=== PATIENT | male | born 1995 | race Caucasian/White ===

== ENCOUNTER 2017-02-06 22:40 | Emergency (ER) | payer OTHER, BC ==
[~2017-02-06] VITALS: Ht 180.3 cm; Wt 77.1 kg
[2017-02-06] MEDS ORDERED: NS IV 1000 ML 1,000 ML IV ONE (22:51)
[2017-02-06] MEDS ORDERED: ANTACID SUSP 30 ML UDC (MYLANTA) PO ONE (23:00)
[2017-02-06] MEDS ORDERED: LIDOCAINE 2% VISCOUS 15 ML UDC PO ONE (23:00)
[2017-02-06] MEDS ORDERED: FAMOTIDINE 20MG/2ML IV (PEPCID) IVP ONE (23:00)
[2017-02-06] MEDS ORDERED: ONDANSETRON 4 MG/2 ML (SDV) Z0FRAN IVP ONE (23:00)
--- NOTE | 2017-02-06 23:01 | ED Abdominal Pain ---
General Chief Complaint: Chest Wall/Rib Pain Stated Complaint: PAIN UNDER RIBS/NAUSEA/VOMITING Nursing Triage Note: REPORTS PAIN IN UPPER RIBS BILAT STARTING AT 2100. PT DRANK A BEER AROUND 1900. TENDER IN EPIGASTIC AREA WITH NAUSEA Sepsis Screen: No Definite Risk Source of Information: Patient Exam Limitations: No Limitations History of Present Illness Time Seen By Provider: 22:45 Initial Comments This 22-year-old young man presents to the emergency room with complaints of pain across the upper abdomen associated with nausea and vomiting. Patient reports drinking one beer at 19:00. He has had nausea throughout the day and started vomiting at 21:00 when his pain became severe. He denies any constipation or diarrhea. No fever. He reports one prior episode of month or 2 ago that was not associated with alcohol use. He reports his pain as 6/10. He reports drinking alcohol relatively infrequently, about twice per month. Allergies and Home Medications Allergies Coded Allergies: No Known Drug Allergies (Unverified , 02/06/17) Home Medications Omeprazole 20 Mg Tablet.dr, 20 MG PO BID, #30 Prescribed by: ELENI CADET on 02/07/17 0117 Review of Systems Constitutional: no symptoms reported EENTM: No Symptoms Reported Respiratory: No Symptoms Reported Cardiovascular: No Symptoms Reported Gastrointestinal: See HPI Genitourinary: No Symptoms Reported Musculoskeletal: no symptoms reported Skin: no symptoms reported Psychiatric/Neurological: No Symptoms Reported Endocrine: No Symptoms Reported Past Hsxzdto-Ejmvtt-Wzefax Hx Patient Social History Alcohol Use: Occasionally Uses Recreational Drug Use: No Smoking Status: Never a Smoker 2nd Hand Smoke Exposure: No Recent Foreign Travel: No Contact w/Someone Who Travel: No Recent Infectious Disease Expo: No Recent Hopitalizations: No Immunizations Up To Date PED Vaccines UTD: Yes Seasonal Allergies Seasonal Allergies: No Surgeries HX Surgeries: Yes (PLASTIC SURGERY FOR FX NOSE (SEPTUM 5 PCS)) Surgeries: Nose Respiratory Hx Respiratory Disorders: No Cardiovascular Hx Cardiac Disorders: No (MURMUR) Reproductive System Hx Reproductive Disorders: No Genitourinary Hx Genitourinary Disorders: No Gastrointestinal Hx Gastrointestinal Disorders: No Musculoskeletal Hx Musculoskeletal Disorders: No Endocrine Hx Endocrine Disorders: No HEENT HX ENT Disorders: No Cancer Hx Cancer: No Psychosocial Hx Psychiatric Problems: No Integumentary HX Skin/Integumentary Disorder: No Blood Transfusions Hx Blood Disorders: No Family Medical History Significant Family History: Diabetes Physical Exam Vital Signs VS - Last 72 Hours, by Label 02/06/17 22:48 Temp 98.5 Pulse 102 Resp 20 B/P (MAP) 160/108 O2 Delivery Room Air Capillary Refill : Less Than 3 Seconds General Appearance: WD/WN, mild distress HEENT: PERRL/EOMI, normal ENT inspection Neck: normal inspection Respiratory: lungs clear, normal breath sounds, no respiratory distress, no accessory muscle use Cardiovascular: regular rate, rhythm, no edema, no murmur Gastrointestinal: normal bowel sounds, soft, tenderness (throughout the upper abdomen) Extremities: normal inspection, no pedal edema Neurologic/Psychiatric: automobile tester II-XII nml as tested, no motor/sensory deficits, alert, normal mood/affect, oriented x 3 Skin: normal color, warm/dry Progress/Results/Core Measures Results/Orders Lab Results Laboratory Tests Test 02/06/17 22:58 02/06/17 23:44 Range/Units White Blood Count 8.6 4.3-11.0 10^3/uL Red Blood Count 5.50 4.35-5.85 10^6/uL Hemoglobin 16.3 13.3-17.7 G/DL Hematocrit 46 40-54 % Mean Corpuscular Volume 84 80-99 FL Mean Corpuscular Hemoglobin 30 25-34 PG Mean Corpuscular Hemoglobin Concent 35 32-36 G/DL Red Cell Distribution Width 13.1 10.0-14.5 % Platelet Count 286 130-400 10^3/uL Mean Platelet Volume 9.5 7.4-10.4 FL Neutrophils (%) (Auto) 62 42-75 % Lymphocytes (%) (Auto) 27 12-44 % Monocytes (%) (Auto) 10 0-12 % Eosinophils (%) (Auto) 0 0-10 % Basophils (%) (Auto) 1 0-10 % Neutrophils # (Auto) 5.4 1.8-7.8 X 10^3 Lymphocytes # (Auto) 2.3 1.0-4.0 X 10^3 Monocytes # (Auto) 0.9 0.0-1.0 X 10^3 Eosinophils # (Auto) 0.0 0.0-0.3 10^3/uL Basophils # (Auto) 0.0 0.0-0.1 10^3/uL Sodium Level 142 135-145 MMOL/L Potassium Level 3.7 3.6-5.0 MMOL/L Chloride Level 105 98-107 MMOL/L Carbon Dioxide Level 26 21-32 MMOL/L Anion Gap 11 5-14 MMOL/L Blood Urea Nitrogen 12 7-18 MG/DL Creatinine 1.21 0.60-1.30 MG/DL Estimat Glomerular Filtration Rate > 60 BUN/Creatinine Ratio 10 Glucose Level 126 H 70-105 MG/DL Calcium Level 9.4 8.5-10.1 MG/DL Total Bilirubin 2.1 H 0.1-1.0 MG/DL Aspartate Amino Transf (AST/SGOT) 26 5-34 U/L Alanine Aminotransferase (ALT/SGPT) 42 0-55 U/L Alkaline Phosphatase 52 40-136 U/L Total Protein 7.4 6.4-8.2 G/DL Albumin 4.6 H 3.2-4.5 G/DL Lipase 25 8-78 U/L Serum Alcohol < 10 <10 MG/DL Urine Color YELLOW Urine Clarity CLEAR Urine pH 7 5-9 Urine Specific [place] 1.015 L 1.016-1.022 Urine Protein NEGATIVE NEGATIVE Urine Glucose (UA) NEGATIVE NEGATIVE Urine Ketones NEGATIVE NEGATIVE Urine Nitrite NEGATIVE NEGATIVE Urine Bilirubin NEGATIVE NEGATIVE Urine Urobilinogen 1 NORMAL MG/DL Urine Leukocyte Esterase NEGATIVE NEGATIVE Urine RBC (Auto) NEGATIVE NEGATIVE Urine RBC NONE /HPF Urine WBC NONE /HPF Urine Squamous Epithelial Cells 2-5 /HPF Urine Crystals NONE /LPF Urine Bacteria NEGATIVE /HPF Urine Casts NONE /LPF Urine Mucus NEGATIVE /LPF Urine Culture Indicated NO My Orders Orders - ELENI RAGSDALE MD Alcohol (02/06/17 22:51) Cbc With Automated Diff (02/06/17 22:51) Comprehensive Metabolic Panel (02/06/17 22:51) Lipase (02/06/17 22:51) Ua Culture If Indicated (02/06/17 22:51) Ondansetron Injection (Zofran Injectio (02/06/17 23:00) Famotidine Injection (Pepcid Injection) (02/06/17 23:00) Lidocaine 2% Viscous 15 Ml (Xylocaine Vi (02/06/17 23:00) Antacid Suspension (Mylanta Suspension (02/06/17 23:00) Saline Lock/Iv-Start (02/06/17 22:51) Ns Iv 1000 Ml (Sodium Chloride 0.9%) (02/06/17 22:51) Us Gallbladder [address] (02/06/17 23:48) Ketorolac Injection (Toradol Injection) (02/07/17 01:15) Rx-Ondansetron Po (Rx-Zofran Po) (02/07/17 01:10) Medications Given in ED Current Medications Medications Dose Ordered Sig/Julieta Route Start Time Stop Time Status Last Admin Dose Admin Al Hydrox/Mg Hydrox/Simethicone 30 ml ONCE ONCE PO 02/06/17 23:00 02/06/17 23:01 DC 02/06/17 23:19 30 ML Famotidine 20 mg ONCE ONCE IVP 02/06/17 23:00 02/06/17 23:01 DC 02/06/17 23:05 20 MG Ketorolac Tromethamine 30 mg ONCE ONCE IVP 02/07/17 01:15 02/07/17 01:16 DC 02/07/17 01:18 30 MG Lidocaine HCl 15 ml ONCE ONCE PO 02/06/17 23:00 02/06/17 23:01 DC 02/06/17 23:19 15 ML Ondansetron HCl 8 mg ONCE ONCE IVP 02/06/17 23:00 02/06/17 23:01 DC 02/06/17 23:05 8 MG Sodium Chloride 1,000 ml @ 0 mls/hr Q0M ONCE IV 02/06/17 22:51 02/06/17 22:55 DC 02/06/17 23:05 999 MLS/HR Vital Signs/I&O Vital Sign - Last 12Hours 02/06/17 22:48 Temp 98.5 Pulse 102 Resp 20 B/P (MAP) 160/108 O2 Delivery Room Air Intake and Output 02/07/17 00:00 Intake Total 1000 ml Balance 1000 ml Blood Pressure Mean: 125 Progress Note #1: Time: 23:00 Progress Note Patient was seen and examined. Labs were ordered along with a liter of IV fluids. Pepcid, Zofran, and GI cocktail were ordered for treatment of his symptoms. Progress Note #2: Time: 23:49 Progress Note Patient reports some gradual improvement of pain but he notes no significant change after GI cocktail. He also reports having recurrent stomach upset with greasy foods and dairy products. Bilirubin was noted to be elevated on lab evaluation. Gallbladder ultrasound has been ordered. On reexamination, he has bilateral upper abdominal pain, right greater than left. Progress Note #3: Time: 01:22 Progress Note Gallbladder was still contracted on the ultrasound. There were no secondary signs of cholecystitis such as pericholecystic fluid. No stones were evident. Bile duct was not dilated. Patient was given a dose of Toradol and a take-home pack of Zofran. Discharge instructions were reviewed. Diagnostic Imaging Diagonstic Imaging: Ultrasound Plain Films/CT/US/NM/MRI: abdomen Comments Gallbladder ultrasound discussed with the outboard technician and [employer] report reviewed. Gallbladder was unfortunately still contracted. There were no secondary signs of cholecystitis such as pericholecystic fluid. Common bile duct was not dilated. No stones were evident. Repeat sonography after a longer fasting duration was recommended. Departure Impression Impression: Primary Impression: Upper abdominal pain Additional Impressions: Nausea and vomiting Qualified Codes: R11.2 - Nausea with vomiting, unspecified Elevated bilirubin Disposition: HOME, SELF-CARE Condition: Improved Departure-Patient Inst. Decision time for Depature: 01:14 Referrals: NO,LOCAL PHYSICIAN (PCP/Family) Primary Care Physician Patient Instructions: Acute Abdomen (Belly Pain) Add. Discharge Instructions: Use omeprazole twice daily for at least 2 weeks as prescribed. Follow-up with your primary care provider soon as possible. Discussed repeating the gallbladder ultrasound when you aren't able to have nothing on your stomach for 6-8 hours prior to the test and when you are not having symptoms. Dissolve the Zofran (ondansetron) under the tongue every 4 hours as needed for nausea or vomiting. Consume primarily clear liquids until symptoms improve. Then gradually advance your diet with small quantities of bland food as tolerated. Avoid the following: Fatty or greasy foods, eating close to bedtime, eating large meals, alcohol, carbonation, caffeine, chocolate, mint, citrus fruits and juices, tomato products, tobacco, NSAID medications such as ibuprofen or naproxen, spicy foods, or anything else you know irritates your stomach. All discharge instructions reviewed with patient and/or family. Voiced understanding. Scripts Omeprazole (Omeprazole) 20 Mg Tablet. 20 MG PO BID, #30 TAB Prov: ELENI RAGSDALE MD 02/07/17 ELENI RAGSDALE MD Feb 06, 2017 23:00
[2017-02-06 23:06] LABS: BASOPHILS % (AUTO) 1 % (0-10); EOSINOPHILS % (AUTO) 0 % (0-10); LYMPHOCYTES # (AUTO) 2.3 X 10^3 (1.0-4.0); LYMPHOCYTES % (AUTO) 27 % (12-44); MEAN CORPUSCULAR HEMOGLOBIN 30 PG (25-34); MEAN CORPUSCULAR HGB CONC 35 G/DL (32-36); MEAN CORPUSCULAR VOLUME 84 FL (80-99); MEAN PLATELET VOLUME 9.5 FL (7.4-10.4); MONOCYTES # (AUTO) 0.9 X 10^3 (0.0-1.0); MONOCYTES % (AUTO) 10 % (0-12); NEUTROPHILS # (AUTO) 5.4 X 10^3 (1.8-7.8); NEUTROPHILS % (AUTO) 62 % (42-75); PLATELET COUNT 286 10^3/uL (130-400); RED CELL DISTRIBUTION WIDTH 13.1 % (10.0-14.5); WHITE BLOOD COUNT 8.6 10^3/uL (4.3-11.0)
[2017-02-06 23:29] LABS: ALANINE AMINOTRANSFERASE 42 U/L (0-55); ALBUMIN 4.6 G/DL (3.2-4.5); ANION GAP 11 MMOL/L (5-14); ASPARTATE AMINO TRANSFERASE 26 U/L (5-34); BILIRUBIN,TOTAL 2.1 MG/DL (0.1-1.0); BLOOD UREA NITROGEN 12 MG/DL (7-18); BUN/CREATININE RATIO 10; CALCIUM 9.4 MG/DL (8.5-10.1); CARBON DIOXIDE 26 MMOL/L (21-32); CHLORIDE 105 MMOL/L (98-107); CREATININE SERUM 1.21 MG/DL (0.60-1.30); GFR ESTIMATED > 60; GLUCOSE 126 MG/DL (70-105); LIPASE 25 U/L (8-78); POTASSIUM 3.7 MMOL/L (3.6-5.0); SODIUM 142 MMOL/L (135-145); TOTAL PROTEIN 7.4 G/DL (6.4-8.2)
[2017-02-06 23:30] LABS: ALCOHOL < 10 MG/DL (<10)
[2017-02-06 23:52] LABS: BILIRUBIN,URINE NEGATIVE (NEGATIVE); KETONES,URINE NEGATIVE (NEGATIVE); LEUKOCYTE ESTERASE ,URINE NEGATIVE (NEGATIVE); NITRITE,URINE NEGATIVE (NEGATIVE); PH,URINE 7 (5-9); PROTEIN,URINE NEGATIVE (NEGATIVE); UROBILINOGEN,URINE 1 MG/DL (NORMAL)
[2017-02-07] MEDS ORDERED: RX-ONDANSETRON 4 MG ODT (ZOFRAN) PPK #4 SL STA (01:10)
[2017-02-07] MEDS ORDERED: KETOROLAC 30 MG/ML VIAL IVP ONE (01:15)
[2017-02-07] MEDS ORDERED: OMEP20TA7 PO (01:17)
[2017-02-07 01:25] VITALS: BP 153/97
--- NOTE | 2017-02-07 08:28 | Diagnostic Imaging Report ---
PROCEDURE: US Gallbladder. TECHNIQUE: Multiple real-time grayscale images were obtained over the right upper quadrant in various projections. INDICATION: Epigastric pain. Vomiting. FINDINGS: The pancreas is obscured by bowel gas. The liver is fairly homogeneous with no focal lesion. The gallbladder is contracted with wall thickness at 3.7 mm. No definitive stone is identified. The CBD is 2 mm in caliber. The right kidney is 12 cm in length with no hydronephrosis or focal lesion. No fluid collection in the upper right abdomen is seen. The patient stated he ate four hours before from this exam IMPRESSION: The gallbladder is contracted with no pericholecystic fluid or definite stone. The patient stated he has been n.p.o. for four hours which is suggestive of biliary dyskinesia or acalculus cholecystitis. Correlate clinically and with HIDA scan as needed. Dictated by: Dictated on workstation # [id number]
[2017-02-22] MEDS ORDERED: CITA20TA12 PO (11:22)
== END 2017-02-07 01:25 | disposition home or self-care (01) ==
LOC: ER 22:43
DX: R10.13 Epigastric pain (principal); R11.2 Nausea with vomiting, unspecified; E80.7 Disorder of bilirubin metabolism, unspecified
CPT/HCPCS: 36415; 76705; 80053; 80320; 81000; 83690; 85025; 96374; 96375

== ENCOUNTER 2017-02-14 18:02 | Emergency (ER) | payer OTHER, BC ==
[~2017-02-14] VITALS: Ht 177.8 cm; Wt 70.3 kg
[~2017-02-14 18:02] MED LIST: OMEP20TA7 PO
--- NOTE | 2017-02-14 18:43 | ED GU-Female ---
General Chief Complaint: Abdominal/GI Problems Stated Complaint: ABD PAIN Nursing Triage Note: pt states he has felt lower abd pain for approx. 8 days and has been having hot and cold flashes and feeling as if he is gonna pass out. pt has had constipation and n/v for approx. 8 days as well. Nursing Sepsis Screen: No Definite Risk Source: patient Exam Limitations: no limitations History of Present Illness Time seen by provider: 18:43 Initial Comments 22 yo male patient presents to the emergency department with c/o rt sided abdominal pain and N/V for 8 days. was seen in the ED 1 wk ago for possible GB attacks. states he was seen by Kong Zhao in [facility] and sent to a surgeon. patient is scheduled sunday for outpatient HIDA scan. Reports pain is worse today. Unable to keep anything down today. NPO since 1500. Denies drinking alcohol today or yesterday. Has had constipation for 8 days. Timing/Duration: week (8 days), intermittent, other (worse today) Severity/Quality: aching, sharp Location: other (RUQ) Radiation: RLQ Activities at Onset: none Prior Genitourinary Problems: similar symptoms Modifying Factors: Worsens With Eating, Worsens With Palpation Allergies and Home Medications Allergies Coded Allergies: No Known Drug Allergies (Unverified , 02/06/17) Home Medications Hydrocodone/Acetaminophen 1 Each Tablet, 1 EACH PO Q4H PRN for PAIN, #10 Ref 0 Prescribed by: QUIQUE SAHA on 02/14/172142 Omeprazole 20 Mg Tablet.dr, 20 MG PO BID, #30 Prescribed by: ELENI CADET on 02/07/17 011 Ondansetron 8 Mg Tab.rapdis, 8 MG PO Q6H PRN for NAUSEA/VOMITING-1ST LINE, #10 Ref 0 Prescribed by: QUIQUE SAHA on 02/14/172142 Constitutional: chills, No fever, No malaise Respiratory: no symptoms reported Cardiovascular: no symptoms reported Gastrointestinal: RUQ, RLQ, see HPI, abdominal pain, constipation, No diarrhea , No hematemesis, No heartburn, No jaundice, loss of appetite, No melena, nausea , vomiting Genitourinary: denies burning, denies discharge, denies dysuria, denies frequency, denies flank pain, denies hematuria, denies pain Musculoskeletal: no symptoms reported Skin: no symptoms reported Psychiatric/Neurological: No Symptoms Reported All Other Systemes Reviewed Negative Unless Noted: Yes (Negative excepted noted.) Past Cuxehzr-Oqxjjo-Ioqwxm Hx Patient Social History Alcohol Use: Occasionally Uses Recreational Drug Use: No Smoking Status: Never a Smoker 2nd Hand Smoke Exposure: No Recent Foreign Travel: No Contact w/Someone Who Travel: No Recent Infectious Disease Expo: No Recent Hopitalizations: No Immunizations Up To Date PED Vaccines UTD: No Seasonal Allergies Seasonal Allergies: No Surgeries HX Surgeries: Yes (PLASTIC SURGERY FOR FX NOSE (SEPTUM 5 PCS)) Surgeries: Nose Respiratory Hx Respiratory Disorders: No Cardiovascular Hx Cardiac Disorders: Yes (MURMUR) Neurological Hx Neurological Disorders: No Reproductive System Hx Reproductive Disorders: No Genitourinary Hx Genitourinary Disorders: No Gastrointestinal Hx Gastrointestinal Disorders: No Musculoskeletal Hx Musculoskeletal Disorders: No Endocrine Hx Endocrine Disorders: No HEENT HX ENT Disorders: No Cancer Hx Cancer: No Psychosocial Hx Psychiatric Problems: No Integumentary HX Skin/Integumentary Disorder: No Blood Transfusions Hx Blood Disorders: No Reviewed Nursing Assessment Reviewed/Agree w Nursing PMH: Yes Family Medical History Significant Family History: Diabetes Physical Exam Vital Signs Vital Sign - Last 12Hours 02/14/17 18:18 Temp 99.1 Pulse 65 Resp 18 B/P (MAP) 147/90 Pulse Ox 98 O2 Delivery Room Air Capillary Refill : Less Than 3 Seconds General Appearance: WD/WN, no apparent distress HEENT: PERRL/EOMI, pharynx normal Neck: supple, normal inspection Cardiovascular: regular rate, rhythm, no murmur Respiratory: lungs clear, normal breath sounds, no respiratory distress Gastrointestinal: normal bowel sounds, soft, no organomegaly, No distended, guarding (RLQ and RUQ), No rebound, tenderness (RLQ and RUQ) Back: normal inspection, CVA tenderness (R), No CVA tenderness (L) Extremities: normal inspection, normal capillary refill Neurologic/Psychiatric: alert, normal mood/affect, oriented x 3 Skin: normal color, warm/dry Progress/Results/Core Measures Results/Orders Lab Results Laboratory Tests Test 02/14/17 18:32 02/14/17 19:05 Range/Units White Blood Count 7.2 4.3-11.0 10^3/uL Red Blood Count 5.61 4.35-5.85 10^6/uL Hemoglobin 16.7 13.3-17.7 G/DL Hematocrit 46 40-54 % Mean Corpuscular Volume 82 80-99 FL Mean Corpuscular Hemoglobin 30 25-34 PG Mean Corpuscular Hemoglobin Concent 37 H 32-36 G/DL Red Cell Distribution Width 12.9 10.0-14.5 % Platelet Count 328 130-400 10^3/uL Mean Platelet Volume 9.8 7.4-10.4 FL Neutrophils (%) (Auto) 66 42-75 % Lymphocytes (%) (Auto) 23 12-44 % Monocytes (%) (Auto) 11 0-12 % Eosinophils (%) (Auto) 0 0-10 % Basophils (%) (Auto) 0 0-10 % Neutrophils # (Auto) 4.7 1.8-7.8 X 10^3 Lymphocytes # (Auto) 1.7 1.0-4.0 X 10^3 Monocytes # (Auto) 0.8 0.0-1.0 X 10^3 Eosinophils # (Auto) 0.0 0.0-0.3 10^3/uL Basophils # (Auto) 0.0 0.0-0.1 10^3/uL Sodium Level 139 135-145 MMOL/L Potassium Level 3.3 L 3.6-5.0 MMOL/L Chloride Level 104 98-107 MMOL/L Carbon Dioxide Level 21 21-32 MMOL/L Anion Gap 14 5-14 MMOL/L Blood Urea Nitrogen 8 7-18 MG/DL Creatinine 1.01 0.60-1.30 MG/DL Estimat Glomerular Filtration Rate > 60 BUN/Creatinine Ratio 8 Glucose Level 78 70-105 MG/DL Calcium Level 9.6 8.5-10.1 MG/DL Total Bilirubin 2.6 H 0.1-1.0 MG/DL Aspartate Amino Transf (AST/SGOT) 18 5-34 U/L Alanine Aminotransferase (ALT/SGPT) 21 0-55 U/L Alkaline Phosphatase 51 40-136 U/L Total Protein 7.5 6.4-8.2 G/DL Albumin 4.8 H 3.2-4.5 G/DL Lipase 15 8-78 U/L Urine Color YELLOW Urine Clarity SLIGHTLY CLOUDY Urine pH 7 5-9 Urine Specific [place] 1.015 L 1.016-1.022 Urine Protein NEGATIVE NEGATIVE Urine Glucose (UA) NEGATIVE NEGATIVE Urine Ketones 3+ H NEGATIVE Urine Nitrite NEGATIVE NEGATIVE Urine Bilirubin NEGATIVE NEGATIVE Urine Urobilinogen 1 NORMAL MG/DL Urine Leukocyte Esterase NEGATIVE NEGATIVE Urine RBC (Auto) NEGATIVE NEGATIVE Urine RBC RARE /HPF Urine WBC RARE /HPF Urine Crystals NONE /LPF Urine Bacteria NEGATIVE /HPF Urine Casts NONE /LPF Urine Mucus SMALL H /LPF Urine Culture Indicated NO My Orders Orders - QUIQUE SAHA Cbc With Automated Diff (02/14/17 18:26) Comprehensive Metabolic Panel (02/14/17 18:26) Ua Culture If Indicated (02/14/17 18:26) Saline Lock/Iv-Start (02/14/17 18:26) Lipase (02/14/17 18:58) Ns Iv 1000 Ml (Sodium Chloride 0.9%) (02/14/17 18:58) Ondansetron Injection (Zofran Injectio (02/14/17 19:00) Ketorolac Injection (Toradol Injection) (02/14/17 18:58) Ct Abd/Pelvis Wo(Kidney Stone) (02/14/17 19:46) Rx-Hydrocodone/Apap 5-325 Mg (Rx-Vicodin (02/14/17 22:00) Medications Given in ED Current Medications Medications Dose Ordered Sig/Julieta Route Start Time Stop Time Status Last Admin Dose Admin Acetaminophen/ Hydrocodone Bitart 1 ea Q4H PRN PO 02/14/17 22:00 02/14/17 22:31 DC 02/14/17 22:25 1 EA Ondansetron HCl 4 mg ONCE ONCE IVP 02/14/17 19:00 02/14/17 19:01 DC 02/14/17 19:12 4 MG Sodium Chloride 1,000 ml @ 0 mls/hr Q0M ONCE IV 02/14/17 18:58 02/14/17 19:00 DC 02/14/17 19:14 1,000 MLS/HR Vital Signs/I&O Vital Sign - Last 12Hours 02/14/17 02/14/17 18:18 22:31 Temp 99.1 98.6 Pulse 65 67 Resp 18 20 B/P (MAP) 147/90 Pulse Ox 98 99 O2 Delivery Room Air Blood Pressure Mean: 109 Diagnostic Imaging Diagonstic Imaging: CT Plain Films/CT/US/NM/MRI: abdomen, pelvis Comments FINDINGS: Lung bases are clear. Unenhanced liver, gallbladder, spleen, and adrenal glands are unremarkable. Pancreas perhaps very minimal adjacent inflammation. Right ureter is perhaps very slightly prominent. Definitive calcification however is not demonstrated. Kidneys and collecting systems are otherwise unremarkable. Abdominal aorta is normal in contour. Gastrointestinal tract demonstrates no obstruction or inflammation. What appears to be the appendix is unremarkable. No abdominal ascites or free air. Urinary bladder is unremarkable. The prostate gland is unremarkable. Osseous structures are nonacute. Asymmetric right L5 pars articularis defect. IMPRESSION: Noncontrast imaging demonstrates very slight prominence about the right renal collecting system without definitive obstructive uropathy. Perhaps recent passage of a stone. However, if symptoms persist, post contrast imaging recommended. Very questionable edematous change about the pancreas. Correlation with pancreatic enzymes would be recommended. Dictated by: Dictated on workstation # [id number] Reviewed: Reviewed by Me (radiology report reviewed by me) Departure Communication Progress Notes Patient case discussed with Dr. Cervantes. Requests patient to have a HIDA scan tomorrow morning with f/u in his office at 1400 for recheck and further management. All laboratory and diagnostic findings discussed with the patient. Recommendations by Dr. Cervantes discussed as well. Plan for HIDA scan tomorrow. I Have advised patient to expect a call from nuclear medicine with appointment time. Patient to see Dr. Cervantes tomorrow at 2 p.m in his office. All return precautions were discussed with the patient as described in the discharge instructions of this report. Patient voices understanding and agrees with the treatment plan. Impression Impression: Primary Impression: Right upper quadrant abdominal pain Additional Impressions: Nausea & vomiting Qualified Codes: R11.2 - Nausea with vomiting, unspecified Right lower quadrant abdominal pain Disposition: 01 HOME, SELF-CARE Condition: Improved Departure-Patient Inst. Decision time for Depature: 21:39 Referrals: MARVIN CERVANTES MD NO,LOCAL PHYSICIAN (PCP) Primary Care Physician Patient Instructions: Acute Abdomen (Belly Pain), Adult (DC), Dehydration, Adult (DC), HIDA Scan (DC) Add. Discharge Instructions: All discharge instructions reviewed with patient and/or family. Voiced understanding. Medications as instructed. Motrin 800 mg by mouth every 8 hours as needed for pain. NOTHING TO EAT OR DRINK AFTER MIDNIGHT. NO HYDROCODONE OR NARCOTIC PAIN MEDICATION AFTER MIDNIGHT. FOLLOW-UP WITH DR. CERVANTES TOMORROW AT 2:00 PM IN HIS OFFICE (February). NUCLEAR MEDICINE WILL CALL YOU IN THE MORNING FOR APPOINTMENT TIME OF THE HIDA SCAN. STRICT LOW FAT DIET. AVOID SPICY FOODS. Return to the emergency department for worsened pain, fever, vomiting, vomiting blood, rectal bleeding, black stools, abdominal swelling, or any other concerns. Scripts Hydrocodone/Acetaminophen (Hydrocodon -Acetaminophen 5-325) 1 Each Tablet 1 EACH PO Q4H Y for PAIN, #10 TAB 0 Refills Prov: QUIQUE SAHA 02/14/17 Ondansetron (Ondansetron Odt) 8 Mg Tab.rapdis 8 MG PO Q6H Y for NAUSEA/VOMITING-1ST LINE, #10 TAB 0 Refills Prov: QUIQUE SAHA 02/14/17 QUIQUE SAHA February 14, 2017 18:43
[2017-02-14 18:46] LABS: BASOPHILS % (AUTO) 0 % (0-10); EOSINOPHILS % (AUTO) 0 % (0-10); LYMPHOCYTES # (AUTO) 1.7 X 10^3 (1.0-4.0); LYMPHOCYTES % (AUTO) 23 % (12-44); MEAN CORPUSCULAR HEMOGLOBIN 30 PG (25-34); MEAN CORPUSCULAR HGB CONC 37 G/DL (32-36); MEAN CORPUSCULAR VOLUME 82 FL (80-99); MEAN PLATELET VOLUME 9.8 FL (7.4-10.4); MONOCYTES # (AUTO) 0.8 X 10^3 (0.0-1.0); MONOCYTES % (AUTO) 11 % (0-12); NEUTROPHILS # (AUTO) 4.7 X 10^3 (1.8-7.8); NEUTROPHILS % (AUTO) 66 % (42-75); PLATELET COUNT 328 10^3/uL (130-400); RED BLOOD COUNT 5.61 10^6/uL (4.35-5.85); RED CELL DISTRIBUTION WIDTH 12.9 % (10.0-14.5); WHITE BLOOD COUNT 7.2 10^3/uL (4.3-11.0)
[2017-02-14 19:07] LABS: ALANINE AMINOTRANSFERASE 21 U/L (0-55); ALBUMIN 4.8 G/DL (3.2-4.5); ANION GAP 14 MMOL/L (5-14); ASPARTATE AMINO TRANSFERASE 18 U/L (5-34); BILIRUBIN,TOTAL 2.6 MG/DL (0.1-1.0); BLOOD UREA NITROGEN 8 MG/DL (7-18); BUN/CREATININE RATIO 8; CALCIUM 9.6 MG/DL (8.5-10.1); CARBON DIOXIDE 21 MMOL/L (21-32); CHLORIDE 104 MMOL/L (98-107); CREATININE SERUM 1.01 MG/DL (0.60-1.30); GFR ESTIMATED > 60; GLUCOSE 78 MG/DL (70-105); POTASSIUM 3.3 MMOL/L (3.6-5.0); SODIUM 139 MMOL/L (135-145); TOTAL PROTEIN 7.5 G/DL (6.4-8.2)
[2017-02-14] MEDS: KETOROLAC 30 MG/ML VIAL IVP STA (19:11)
[2017-02-14] MEDS: ONDANSETRON 4 MG/2 ML (SDV) Z0FRAN IVP ONE (19:12)
[2017-02-14] MEDS: NS IV 1000 ML 1,000 ML IV ONE (19:14)
[2017-02-14 19:15] LABS: BILIRUBIN,URINE NEGATIVE (NEGATIVE); KETONES,URINE 3+ (NEGATIVE); LEUKOCYTE ESTERASE ,URINE NEGATIVE (NEGATIVE); NITRITE,URINE NEGATIVE (NEGATIVE); PH,URINE 7 (5-9); PROTEIN,URINE NEGATIVE (NEGATIVE); UROBILINOGEN,URINE 1 MG/DL (NORMAL)
[2017-02-14 19:23] LABS: WBC,URINE RARE /HPF
--- NOTE | 2017-02-14 21:03 | Diagnostic Imaging Report ---
PROCEDURE: CT urinary tract, rule out kidney stone. TECHNIQUE: Multiple contiguous axial images were obtained through the abdomen and pelvis without the use of intravenous contrast. INDICATION: Right-sided pain x1 week. Nausea. CORRELATION STUDY: None. FINDINGS: Lung bases are clear. Unenhanced liver, gallbladder, spleen, and adrenal glands are unremarkable. Pancreas perhaps very minimal adjacent inflammation. Right ureter is perhaps very slightly prominent. Definitive calcification however is not demonstrated. Kidneys and collecting systems are otherwise unremarkable. Abdominal aorta is normal in contour. Gastrointestinal tract demonstrates no obstruction or inflammation. What appears to be the appendix is unremarkable. No abdominal ascites or free air. Urinary bladder is unremarkable. The prostate gland is unremarkable. Osseous structures are nonacute. Asymmetric right L5 pars articularis defect. IMPRESSION: Noncontrast imaging demonstrates very slight prominence about the right renal collecting system without definitive obstructive uropathy. Perhaps recent passage of a stone. However, if symptoms persist, post contrast imaging recommended. Very questionable edematous change about the pancreas. Correlation with pancreatic enzymes would be recommended. Dictated by: Dictated on workstation # [id number]
[2017-02-14] MEDS ORDERED: ONDA8TAB13 PO (21:43)
[2017-02-14] MEDS ORDERED: HYDR-3812 PO (21:43)
[2017-02-14] MEDS: RX-HYDROCODONE/APAP 5/325 MG #4 TAB PK PO PRN (22:25)
[2017-02-14 22:31] VITALS: BP 141/89
[2017-02-22] MEDS ORDERED: CITA20TA12 PO (11:22)
== END 2017-02-14 22:31 | disposition home or self-care (01) ==
LOC: EDUNIT# 18:02 → ER 18:05
DX: R10.11 Right upper quadrant pain (principal); R11.2 Nausea with vomiting, unspecified; R10.31 Right lower quadrant pain
CPT/HCPCS: 36415; 74176; 80053; 81000; 83690; 85025; 96361; 96374; 96375

== ENCOUNTER → 2017-02-15 | Outpatient (CLI) | payer OTHER, BC ==
[~2017-02-15] MED LIST changes: +CATHETER FLUSH 10 ML SYR IV PRN; +CITA20TA12 PO; +HYDR-3812 PO; +ONDA8TAB13 PO
--- NOTE | 2017-02-15 14:08 | Diagnostic Imaging Report ---
EXAMINATION: HIDA with EF measurements Indication: Abdominal pain TECHNIQUE: After the intravenous administration of 5.3 mCi of Tc 99m Choletec, imaging over the abdomen was obtained. This was followed by administration of Ensure orally to stimulate intrinsic CCK secretion, followed by continued imaging with ejection fraction measured. FINDINGS: There is homogeneous uptake in the liver with prompt bile duct and gallbladder filling seen. Bowel activity is seen at 20 minutes. Based on further imaging and gallbladder area of interest activity measurements after the administration of Ensure, the gallbladder ejection fraction is estimated at 85%. IMPRESSION: 1. Normal hepatobiliary uptake and Gallbladder filling. 2. Normal gallbladder ejection fraction. Dictated by: Dictated on workstation # [id number]
== END ==
LOC: CARD 10:58
PROVIDERS: ATTEND Family Medicine
DX: R10.11 Right upper quadrant pain (principal)
CPT/HCPCS: 78227

== ENCOUNTER 2017-02-22 05:40 | Outpatient (CLI) | payer OTHER, BC ==
[~2017-02-22] VITALS: Ht 177.8 cm; Wt 70.3 kg
[~2017-02-22 05:40] MED LIST changes: -CATHETER FLUSH 10 ML SYR IV PRN; -CITA20TA12 PO
[2017-02-22] MEDS ORDERED: CITA20TA12 PO ×2 (11:22)
== END 2017-02-22 11:23 ==
LOC: PREOP 05:40
PROVIDERS: ATTEND Surgery
DX: Z01.818 Encounter for other preprocedural examination (principal); R10.13 Epigastric pain; R11.2 Nausea with vomiting, unspecified

== ENCOUNTER 2017-02-26 11:04 | Day surgery (SDC) | payer OTHER, BC ==
[~2017-02-26] VITALS: Ht 177.8 cm; Wt 70.3 kg
[~2017-02-26 11:04] MED LIST changes: +CITA20TA12 PO
[2017-02-26 11:10] VITALS: BP 154/96
[2017-02-26] MEDS ORDERED: NS IV 500 ML 500 ML ONE (11:12)
[2017-02-26] MEDS ORDERED: fentaNYL INJECTION 100 MCG/2 ML AMP IVP PRN (11:15)
[2017-02-26] MEDS ORDERED: FLUMAZENIL (ROMAZICON) 0.1 MG/ML 5 ML VIAL INJ PRN (11:15)
[2017-02-26] MEDS ORDERED: NALOXONE 0.4 MG/ML 1 ML (NARCAN) VIAL IVP PRN (11:15)
[2017-02-26] MEDS ORDERED: NS IV 500 ML 500 ML IV PRN (11:15)
[2017-02-26] MEDS ORDERED: HURRICAINE EXT TUBE (BENZOCAINE) XX PRN (11:15)
[2017-02-26] MEDS ORDERED: MIDAZOLAM 2 MG/2 ML (VERSED) VIAL ONE ×4 (12:54)
[2017-02-26] MEDS ORDERED: HURRICAINE EXT TUBE (BENZOCAINE) ONE (12:55)
[2017-02-26] MEDS ORDERED: fentaNYL INJECTION 100 MCG/2 ML AMP ONE ×2 (12:55)
[2017-02-26] MEDS: MIDAZOLAM 2 MG/2 ML (VERSED) VIAL IVP PRN ×4 (13:06→13:17)
--- NOTE | 2017-02-26 13:10 | Conscious Sedation/ASA ---
Conscious Sedation Pre-Proced ASA Class: 2 Airway Mallampati Classification: ([place] appropriate class) I. II. III, IV Lungs Heart ASA score ASA 1: a normal healthy patient ASA 2: a patient with a mild systemic disease (mid diabetes, controlled hypertension, obesity ASA 3: a patient with a severe systemic disease that limits activity (angina , COPD, prior Myocardial infarction) ASA 4: a patient with an incapacitating disease that is a constant threat to life (CHF, renal failure) ASA 5: a moribund patient not expected to survive 24 hrs. (ruptured aneurysm) ASA 6: a declared brain patient whose organs are being harvested. For emergent operations, add the letter E after the classification Grade 1 Sedation Plan: Discussed options with patient/fam Note The patient is an appropriate candidate to undergo the planned procedure, sedation, and anesthesia. The patient immediately re-assessed prior to indication. MARVIN CERVANTES MD February 26, 2017 1:10 pm
--- NOTE | 2017-02-26 13:22 | Endoscopy Procedure Report ---
Endoscopy Report Date: February 26, 2017 Preoperative Diagnosis: epigastric pain Study Performed: Upper Endoscopy Procedure Instrument: Endoscope Endo Procedure/Findings Findings 1.: Gastric Ulcer, Gastritis MARVIN CERVANTES MD February 26, 2017 1:22 pm
--- NOTE | 2017-02-26 13:24 | Discharge Inst-Simple/Standard ---
Discharge Inst-Standard Discharge Medications New, Converted or Re-Newed RX: Call to Patients Pharmacy Patient Instructions/Follow Up Plan of Care/Instructions/FU: please call for Carafate 1 g 3 times a day for 10 days with no refill, to his pharmacy. Follow-up with me in 3 weeks.. To avoid nonsteroidals and aspirin Activity as Tolerated: Yes Discharge Diet: No Restrictions MARVIN CERVANTES MD February 26, 2017 1:24 pm
[2017-02-26 13:40] VITALS: BP 130/87
[2017-02-26 14:10] VITALS: BP 148/90
[2017-02-26 16:30] VITALS: BP 148/90
--- NOTE | 2017-02-27 04:48 | OPERATIVE REPORT ---
DATE OF SERVICE: 02/26/2017 PROCEDURE: Upper endoscopy with antral biopsy. SURGEON: Jeff. INDICATION FOR PROCEDURE: This gentleman came in for an upper endoscopy to evaluate ongoing epigastric pain. Informed consent was obtained after reviewing the procedure in detail. DESCRIPTION OF PROCEDURE: He was placed in left lateral decubitus position and his vital signs were monitored. Conscious sedation was achieved using Versed and fentanyl. The flexible gastroscope was introduced down the esophagus, past the stomach, into the proximal duodenum. FINDINGS: ESOPHAGUS: Grade II esophagitis with a short hiatal hernia. STOMACH: 1. Multiple distal gastric erosions. 2. A prepyloric ulcer measuring about 2 mm in diameter. An antral biopsy for Helicobacter was obtained. DUODENUM: Changes of duodenitis and a few erosions were found up on the first part. He tolerated the procedure well and was taken back to the nursing area in a stable condition. IMPRESSION: 1. Epigastric pain. 2. Esophagitis. 3. Antral erosions and pyloric channel ulcer. Helicobacter status pending. Job ID: [id number] DocumentID: [id number] Dictated Date: 02/26/2017 13:20:12 Senior Project Accountant Date: 02/27/2017 04:48:24 Dictated By: MARVIN CERVANTES MD [facility]
== END 2017-02-26 16:30 | disposition home or self-care (01) ==
LOC: ENDO 11:04
PROVIDERS: ATTEND Surgery
DX: K20.9 Esophagitis, unspecified (principal); K25.9 Gastric ulcer, unspecified as acute or chronic, without hemorrhage or perforation; K44.9 Diaphragmatic hernia without obstruction or gangrene; K29.80 Duodenitis without bleeding

== ENCOUNTER 2023-04-10 18:50 | Emergency (ER) | payer BC, OTHER ==
[~2023-04-10 18:50] MED LIST changes: +ACHD5005 PO; -HYDR-3812 PO; +OMEP20TA56 PO; -OMEP20TA7 PO
[2023-04-10 18:58] VITALS: BP 162/94
--- NOTE | 2023-04-10 19:06 | ED Lower Extremity ---
General Chief Complaint: Lower Extremity Stated Complaint: LEFT ANKLE PAIN|FALL Source: patient Exam Limitations: no limitations History of Present Illness Date Seen by Provider: Apr 10, 2023 Time Seen by Provider: 19:03 Initial Comments Patient is a 28-year-old male who presents ED with a left lateral foot and left lateral ankle pain. Patient states around 1130 today he missed a step at work rotating his left ankle. Patient felt a pop. Patient reports pain 8 out of 10 with swelling to the left ankle and left lateral foot. Able to ambulate but with pain and discomfort. Took ibuprofen earlier right after the injury. Patient works for [employer]. Denies falling or hitting his head. Denies any distal numbness and tingling, calf pain, fever, chills, nausea, vomiting, diarrhea Allergies and Home Medications Allergies Coded Allergies: No Known Drug Allergies (Unverified , 02/06/17) Patient Home Medication List Home Medication List Reviewed: Yes Citalopram Hydrobromide (Celexa) 20 Mg Tablet, 20 MG PO DAILY, (Reported) Entered as Reported by: MALLY MCGRAW on 02/22/17 112 Hydrocodone Bit/Acetaminophen (Lortab 5 Mg Tablet) 1 Each Tablet, 1 EACH PO Q4H PRN for PAIN Prescribed by: QUIQUE SAHA on 02/14/172142 Hydrocodone/Acetaminophen (Hydrocodone-Acetamin 5-325 mg) 5 Mg-325 Mg Tablet, 1 TAB PO Q4H PRN for PAIN-MODERATE (5-7) Prescribed by: PATRICE HANKINS on 04/10/231946 Omeprazole (Omeprazole) 20 Mg Tablet.dr, 20 MG PO BID Prescribed by: ELENI CADET on 02/07/17 011 Ondansetron (Ondansetron Odt) 8 Mg Tab.rapdis, 8 MG PO Q6H PRN for NAUSEA/VOMITING-1ST LINE Prescribed by: QUIQUE SAHA on 02/14/172142 Review of Systems Constitutional: No chills, No diaphoresis EENTM: No blurred vision, No double vision Respiratory: No cough, No dyspnea on exertion Cardiovascular: No chest pain Gastrointestinal: No abdominal pain, No diarrhea, No nausea, No vomiting Genitourinary: No decreased output, No discharge Musculoskeletal: No back pain; joint pain, joint swelling Skin: No change in color All Other Systems Reviewed Negative Unless Noted: Yes Past Odfqalw-Scishg-Fpudns Hx Patient Social History Tobacco Use?: No Substance use?: No Alcohol Use?: No Pt feels they are or have been: No Immunizations Up To Date PED Vaccines UTD: No Influenza Vaccine Up-to-Date: No; Not Current Seasonal Allergies Seasonal Allergies: No Past Medical History Nose Heart Murmur Reproductive Disorders: No Family Medical History Diabetes Physical Exam Vital Signs Vital Signs - First Documented 04/10/23 18:58 Pulse 96 Resp 16 B/P (MAP) 162/94 (116) Pulse Ox 97 O2 Delivery Room Air Capillary Refill : Height, Weight, BMI Height: 5'10.00" Weight: 155lbs. 0.0oz. 70.258433ld; 22.2 BMI Method:Stated General Appearance: WD/WN, no apparent distress HEENT: PERRL/EOMI, normal ENT inspection, TMs normal, pharynx normal Neck: non-tender, full range of motion, supple, normal inspection Cardiovascular: regular rate, rhythm, no edema, no gallop, no JVD Respiratory: chest non-tender, lungs clear, normal breath sounds, no respiratory distress, no accessory muscle use Gastrointestinal: normal bowel sounds, non tender, soft, no organomegaly Back: normal inspection, no CVA tenderness, no vertebral tenderness Hips: bilateral hip non-tender, bilateral hip normal inspection, bilateral hip normal range of motion Legs: left leg other (No calf tenderness. Negative Homans' sign) Knees: bilateral knee non-tender, bilateral knee normal inspection, bilateral knee normal range of motion Ankles: left ankle pain, left ankle soft tissue tenderness (Left lateral malleolus tenderness. Pain with flexion. 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 II-XII nml as tested, no motor/sensory deficits, alert, normal mood/affect, oriented x 3 Skin: normal color, warm/dry Progress/Results/Core Measures Results/Orders My Orders Orders - EDYTA MUHAMMAD Ankle, Left, 3 Views (04/10/23 19:03) Foot, Left, 3 Views (04/10/23 19:03) Ibuprofen Tablet (Motrin Tablet) (04/10/23 19:30) Medications Given in ED Current Medications Medications Dose Ordered Sig/Julieta Route Start Time Stop Time Status Last Admin Dose Admin Ibuprofen 800 mg ONCE ONCE PO 04/10/23 19:30 04/10/23 19:31 DC 04/10/23 19:25 800 MG Vital Signs/I&O 04/10/23 18:58 Pulse 96 Resp 16 B/P (MAP) 162/94 (116) Pulse Ox 97 O2 Delivery Room Air Departure Communication (PCP) Reviewed previous ER visits, H&P, lab testing. Differential diagnosis left ankle sprain, left foot sprain, left ankle fracture, left foot fracture. due to mechanism of injury x-ray of the left ankle was ordered. X-ray of the left ankle and left foot negative for acute fracture. Concern for ankle sprain. Received a dose of anti-inflammatory. Ibuprofen 800 mg. Did offer Aircast. May benefit more with a lace up splint. Discussed elevation, ice and anti- inflammatories. If continued pain recommend orthopedic outpatient follow-up. For further evaluation. Patient is able to stand and bear weight. Impression Primary Impression: Sprain and strain of ankle Disposition: HOME, SELF-CARE Condition: Stable Departure-Patient Inst. Decision time for Depature: 19:46 Referrals: OSUMYA DUBOIS (PCP) Primary Care Physician JAMES ANDREWS MD Patient Instructions: Ankle Sprain (DC) Scripts Hydrocodone/Acetaminophen (Hydrocodone-Acetamin 5-325 mg) 5 Mg-325 Mg Tablet 1 TAB PO Q4H PRN for PAIN-MODERATE (5-7), #8 TAB Prov: EDYTA MUHAMMAD 04/10/23 Work/School Note: Work Release Form Date Seen in the Emergency Department: Apr 10, 2023 Return to Work: Apr 12, 2023 EDYTA MUHAMMAD Apr 10, 2023 19:06
--- NOTE | 2023-04-10 19:25 | Diagnostic Imaging Report ---
INDICATION: Pain. 3 views were obtained. FINDINGS: The alignment is normal. There is no fracture or dislocation. The soft tissues are unremarkable. IMPRESSION: No acute fracture or dislocation. Dictated by: Dictated on workstation # [id number]
[2023-04-10] MEDS ORDERED: IBUPROFEN 800 MG (MOTRIN) TAB PO ONE (19:30)
--- NOTE | 2023-04-10 19:36 | Diagnostic Imaging Report ---
INDICATION: Pain. 3 views were obtained. FINDINGS: The alignment is normal. The plafonds and talar dome are intact. The ankle mortise is symmetric. There is no acute fracture or dislocation. IMPRESSION: No acute fracture or dislocation. Dictated by: Dictated on workstation # [id number]
[2023-04-10] MEDS ORDERED: ACHD5005 PO (19:47)
== END 2023-04-10 19:54 | disposition home or self-care (01) ==
LOC: EDUNIT# 18:50 → ER 18:53
DX: S93.402A Sprain of unspecified ligament of left ankle, initial encounter (principal); S96.912A Strain of unspecified muscle and tendon at ankle and foot level, left foot, initial encounter; Z28.310 Unvaccinated for COVID-19; X50.1XXA Overexertion from prolonged static or awkward postures, initial encounter; W19.XXXA Unspecified fall, initial encounter; Y92.59 Other trade areas as the place of occurrence of the external cause; Y99.0 Civilian activity done for income or pay
CPT/HCPCS: 73610; 73630